=== PATIENT | male | born 1940 | race Hispanic/Latino ===

== ENCOUNTER 2016-06-22 12:41 | Inpatient (IN) | payer MEDICARE ==
--- NOTE | 2016-06-22 13:19 | Emergency Department Report ---
Chief Complaint: Neuro Symptoms/Deficit Stated Complaint: STROKE SYMPTOMS/ELEVATED SUGAR - HPI History of Present Illness: Patient here with daughter whom is very upfront about speaking for her father. Daughter states she believed her father had a stroke this morning. [facility] patient had confirmed stroke on CT by Hemalatha Overton 4 days ago after patient was found faced down in the shower. States told at [place] that patient needs reactivated plasma treatment which she would like administered to him today. Daughter reports blood sugar in the 400s this morning. Patient reports right leg weakness. He denies headache, chest pain, SOB. - Exam Vital Signs: Vital Signs 06/22/16 12:54 Temperature 98.4 F Pulse Rate 69 Respiratory 18 Rate Blood Pressure 144/94 [Right] O2 Sat by Pulse 94 Oximetry Physical Exam: General: NAD. Neuro: Asymmetric Left facial expression. No arm drift. + Symmetric upper and lower extremity strength. Extremities: Multiple abrasions to b/l knees. + right calf tenderness. No pretibia edema. MSE screening note: Focused history and physical exam performed. Due to findings the following was ordered: ED Disposition for MSE Condition: Stable
[2016-06-22 14:40] LABS: Basophils % (Auto) 1.4 % (0.0-1.8); Eosinophils % (Auto) 6.7 % (0.0-4.3); Hematocrit 54.6 % (35.5-45.6); Hemoglobin 18.5 gm/dl (11.8-15.2); Mean Corpuscular HGB Conc 34 % (32-34); Mean Corpuscular Hemoglobin 31 pg (28-32); Mean Corpuscular Volume 92 fl (84-94); Platelet Count 170 K/mm3 (140-440); Red Blood Count 5.93 M/mm3 (3.65-5.03); Red Cell Distribution Width 13.4 % (13.2-15.2); White Blood Count 6.3 K/mm3 (4.5-11.0)
[2016-06-22 14:47] LABS: INR 0.9 (0.87-1.13)
[2016-06-22 14:59] LABS: Anion Gap 20 mmol/L; B-Hydroxybutyrate 1.6 mg/dL (0.2-2.8); Blood Urea Nitrogen 12 mg/dL (9-20); Calcium 9.4 mg/dL (8.4-10.2); Carbon Dioxide 26 mmol/L (22-30); Chloride 94.5 mmol/L (98-107); Glucose 361 mg/dL (75-100); Potassium 4.6 mmol/L (3.6-5.0); Sodium 136 mmol/L (137-145)
--- NOTE | 2016-06-22 15:41 | Cat Scan Report ---
CT HEAD WITHOUT CONTRAST: HISTORY: CVA. Serial contiguous axial images were obtained through the cranium. Intravenous contrast material was not administered. The ventricles are normal in size and appearance. There is no mass effect or midline shift. No areas of abnormally increased or decreased attenuation are seen. No mass lesion is seen. The mastoid air cells and visualized portions of the sinuses are normal. IMPRESSION: Cranial CT scan within normal limits.
[2016-06-23] MEDS ORDERED: NORCO 5/325 PO ONE (00:02)
--- NOTE | 2016-06-23 00:12 | Emergency Department Report ---
HPI - General Chief Complaint: Neuro Symptoms/Deficit Time Seen by Provider: 06/22/16 23:33 - HPI HPI: Room 2 Patient is 76-year-old male presenting with chief complaint of frequent falls. The patient lives with his daughter at home and she states he has had frequent falls for the past 3-4 months. The patient's primary physician wanted to do a workup the patient wanted to wait until after the holidays. 5 days ago the daughter came home states she felt the patient lying face down in the shower but he was conscious with the shower running. The patient states he was in the shower and then "I just went down." The patient states he felt too weak to get up the daughter states she got the patient up and put him in bed the next day she felt the patient for about the toilet unconscious. The daughter states it appears as though the patient was struggling to make his way to the bathroom and was unsuccessful and incontinent. EMS was called and transported the patient to [facility] the patient received a CT scan of the brain and blood work. The daughter states the patient was discharged home. The daughter states the symptoms continued and the patient is currently unable to walk without fall. The patient complains of pain in his right knee and denies other complaints except for inability to walk Location: [see above] Duration: [see above] Quality: Pain Severity: Moderate Modifying factors: [see above] Context: [see above] Mode of transportation: [not driving] ED Past Medical Hx - Past Medical History Hx Hypertension: Yes Hx Diabetes: Yes Additional medical history: dementia, various vein - Surgical History Additional Surgical History: Right knee - Family History Family history: no significant - Social History Smoking Status: Never Smoker Substance Use Type: Alcohol (occasional) ED Review of Systems ROS: Stated complaint: STROKE SYMPTOMS/ELEVATED SUGAR Other details as noted in HPI Comment: All other systems reviewed and negative Constitutional: denies: chills, fever Eyes: denies: eye pain, eye discharge, vision change ENT: denies: ear pain, throat pain Respiratory: denies: cough, shortness of breath, wheezing Cardiovascular: denies: chest pain, palpitations Endocrine: no symptoms reported Gastrointestinal: denies: abdominal pain, nausea, diarrhea Genitourinary: denies: urgency, dysuria Musculoskeletal: arthralgia Skin: other (bruising and scabs over knees) Neurological: denies: headache, weakness, paresthesias Psychiatric: denies: anxiety, depression Hematological/Lymphatic: denies: easy bleeding, easy bruising Physical Exam - Physical Exam Vital Signs: Vital Signs 06/22/16 12:54 Temperature 98.4 F Pulse Rate 69 Respiratory 18 Rate Blood Pressure 144/94 [Right] O2 Sat by Pulse 94 Oximetry Physical Exam: GENERAL: The patient is well-developed well-nourished male lying on stretcher not appearing to be in acute distress. [] HEENT: Normocephalic. Atraumatic. Extraocular motions are intact. Patient has moist mucous membranes. NECK: Supple. Trachea midline CHEST/LUNGS: Clear to auscultation. There is no respiratory distress noted. HEART/CARDIOVASCULAR: Regular. There is no tachycardia. There is no gallop rub or murmur. ABDOMEN: Abdomen is soft, nontender. Patient has normal bowel sounds. There is no abdominal distention. SKIN: There is bruising and scabs over bilateral knees from previous falls. There is no diaphoresis. NEURO: The patient is awake, alert, and oriented. The patient is cooperative. The patient has no focal neurologic deficits. The patient has normal speech. Cranial nerves II through XII grossly intact, no drift, normal sensation throughout. Semiautomatic Stitcher Operator 5+/5 bilaterally MUSCULOSKELETAL: There is no evidence of acute injury. ED Course Vital Signs 06/22/16 12:54 Temperature 98.4 F Pulse Rate 69 Respiratory 18 Rate Blood Pressure 144/94 [Right] O2 Sat by Pulse 94 Oximetry ED Medical Decision Making - Lab Data Result diagrams: 06/22/16 14:27 06/22/16 14:27 Laboratory Tests 06/22/16 06/22/16 06/22/16 12:56 14:27 14:27 WBC 6.3 RBC 5.93 H Hgb 18.5 H Hct 54.6 H MCV 92 MCH 31 MCHC 34 RDW 13.4 Plt Count 170 Lymph % (Auto) 21.2 [place] % (Auto) 10.3 H Eos % (Auto) 6.7 H Baso % (Auto) 1.4 Lymph # 1.3 [place] # 0.6 Eos # 0.4 Baso # 0.1 Seg Neutrophils % 60.4 Seg Neutrophils # 3.8 PT 12.0 L INR 0.90 Thrombin Time VBG pH Sodium Potassium Chloride Carbon Dioxide Anion Gap BUN Creatinine Estimated GFR BUN/Creatinine Ratio Glucose POC Glucose 302 H Calcium Troponin T Ketones 06/22/16 06/22/16 06/22/16 14:27 14:27 14:27 WBC RBC Hgb Hct MCV MCH MCHC RDW Plt Count Lymph % (Auto) [place] % (Auto) Eos % (Auto) Baso % (Auto) Lymph # [place] # Eos # Baso # Seg Neutrophils % Seg Neutrophils # PT INR Thrombin Time 13.8 L VBG pH 7.332 Sodium 136 L Potassium 4.6 Chloride 94.5 L Carbon Dioxide 26 Anion Gap 20 BUN 12 Creatinine 1.1 Estimated GFR > 60 BUN/Creatinine Ratio 10.90 Glucose 361 H POC Glucose Calcium 9.4 Troponin T < 0.010 Ketones 1.6 - Radiology Data Radiology results: report reviewed (CT head), image reviewed (CT head, right knee x-ray, pelvis x-ray) interpreted by me: Right knee x-ray-no acute fracture Pelvis x-ray-no acute fracture CT head (read by radiologist)-cranial CT scan within normal limits - Differential Diagnosis CVA, syncope, pelvic fracture Critical care attestation.: If time is entered above; I have spent that time in minutes in the direct care of this critically ill patient, excluding procedure time. ED Disposition Clinical Impression: Inability to walk, Frequent falls, Impaired activities of daily living, Contusion of right knee Disposition: OP ADMITTED IP TO THIS HOSP Is pt being admited?: Yes Does the pt Need Aspirin: Yes Condition: Fair Referrals: RADHA ASKEW MD [Primary Care Provider] - 3-5 Days Time of Disposition: 00:47 (hospitalist notified)
[2016-06-23 01:33] LABS: Bilirubin,Urine NEG (Negative); Blood,Urine NEG (Negative); Ketones,Urine NEG (Negative); Leukocyte Esterase,Urine NEG (Negative); Mucus,Urine FEW /HPF; Nitrite,Urine NEG (Negative); Protein,Urine <15 mg/dL mg/dL (Negative); RBC,Urine < 1.0 /HPF (0.0-6.0); Urobilinogen,Urine < 2.0 mg/dL (<2.0)
[2016-06-23] MEDS ORDERED: XANAX PO ONE (01:36)
[2016-06-23] MEDS ORDERED: XANAX ONE (01:38)
[2016-06-23] MEDS ORDERED: NORCO 5/325 ONE (02:06)
--- NOTE | 2016-06-23 02:32 | History and Physical Report ---
History of Present Illness Date of examination: 06/23/16 History of present illness: 76-year-old man with a history of hypertension, diabetes, TIA comes emergency room because he has been falling more often. He was diagnosed with a TIA a few days ago at [facility]. Daughter state that he falls every day, patient had a right knee replacement , he stated he feels like his knees is giving out. Daughter state these noncompliant with diet, sugars are uncontrolled Patient denies chest pain, palpitation, shortness of breath, cough, abdominal pain, hematochezia, dysuria, frequency, focal weakness, dysarthria, fever chills , polydipsia polyuria, hot or cold intolerance, easy bruisability, or rash or bleeding from mucosal membrane, rhinorrhea, epistaxis, earache, tinnitus, blurry vision, eye discharge, anxiety, depression. Other review of systems negative PAST SURGICAL HISTORY: Knee replacement SOCIAL HISTORY: Denies alcohol, tobacco, drugs FAMILY HISTORY: Hypertension Medications and Allergies Allergies Allergy/AdvReac Type Severity Reaction Status Date / Time No Known Allergies Allergy Verified 06/23/16 01:47 Home Medications Medication Instructions Recorded Confirmed Last Taken Type ALPRAZolam [Xanax TAB] 2 mg PO DAILY 06/23/16 06/23/16 Unknown History Aspirin [Aspirin BABY CHEW TAB] 81 mg PO DAILY 06/23/16 06/23/16 Unknown History Cholecalciferol (Vitamin D3) 1,000 unit PO DAILY 06/23/16 06/23/16 Unknown History [Children's Vitamin D3] Insulin Glargine [Lantus VIAL] 45 units SQ QHS 06/23/16 06/23/16 Unknown History Insulin Lispro [Humalog Kwikpen 15 unit SQ TID 06/23/16 06/23/16 Unknown History U-100] Metoprolol [Lopressor TAB] 50 mg PO BID 06/23/16 06/23/16 Unknown History Omeprazole 20 mg PO DAILY 06/23/16 06/23/16 Unknown History Oxybutynin Chloride [Oxybutynin 5 mg PO DAILY 06/23/16 06/23/16 Unknown History Chloride ER] Pravastatin Sodium [Pravastatin] 40 mg PO DAILY 06/23/16 06/23/16 Unknown History Zolpidem [Ambien] 5 mg PO QHS PRN 06/23/16 06/23/16 Unknown History Active Meds: Active Medications Alprazolam (Xanax) 2 mg PO ONCE ONE Stop: 06/23/16 01:37 Last Admin: 06/23/16 01:43 Dose: 2 mg Exam - Physical Exam Narrative exam: Gen. appearance: Patient lying in bed, no apparent distress HEENT: Normocephalic, atraumatic, pupils equally round and reactive to light, extraocular movement intact, and no sclericterus,. No JVD or thyromegaly or nodule,neck supple, no carotid bruit ,mucous membranes moist, no exudate or erythema Heart: S1, S2, regular rate and rhythm Lungs: Clear to auscultation bilaterally, breathing comfortable Abdomen: Positive bowel sounds, nontender, nondistended, no organomegaly Extremity: No edema, cyanosis, clubbing Skin: No rash, nodules, warm, dry Neuro: Oriented 3, cranial nerves II-12 intact, speech is fluent, motor and sensory intact - Constitutional Vitals: Temp Pulse Resp BP Pulse Ox 97.4 F L 79 16 136/80 93 06/23/16 00:06 06/23/16 01:01 06/23/16 01:01 06/23/16 01:01 06/23/16 01:01 Results - Labs CBC & Chem 7: 06/27/16 05:35 06/27/16 05:35 Labs: Abnormal lab results 06/22/16 06/22/16 06/22/16 Range/Units 12:56 14:27 14:27 RBC 5.93 H (3.65-5.03) M/mm3 Hgb 18.5 H (11.8-15.2) gm/dl Hct 54.6 H (35.5-45.6) % [place] % (Auto) 10.3 H (0.0-7.3) % Eos % (Auto) 6.7 H (0.0-4.3) % PT 12.0 L (12.2-14.9) Sec. Thrombin Time (15.1-19.6) Sec. Sodium (137-145) mmol/L Chloride (98-107) mmol/L Glucose (75-100) mg/dL POC Glucose 302 H (70-105) 06/22/16 06/22/16 Range/Units 14:27 14:27 RBC (3.65-5.03) M/mm3 Hgb (11.8-15.2) gm/dl Hct (35.5-45.6) % [place] % (Auto) (0.0-7.3) % Eos % (Auto) (0.0-4.3) % PT (12.2-14.9) Sec. Thrombin Time 13.8 L (15.1-19.6) Sec. Sodium 136 L (137-145) mmol/L Chloride 94.5 L (98-107) mmol/L Glucose 361 H (75-100) mg/dL POC Glucose (70-105) - Imaging and Cardiology CT Scan - head: report reviewed Assessment and Plan Frequent fall, rule out knee prosthetic problem Dehydration Hypertension Diabetes History of TIA Admits medicine Start IV fluid, consult physical therapy, orthopedic Check fingersticks initiate insulin sliding scale Continue appropiate outpatient medications, start DVT prophylaxis Follow x-ray of the knee and pelvis
[2016-06-23] MEDS ORDERED: MILK OF MAGNESIA PO PRN (04:40)
[2016-06-23] MEDS ORDERED: ZOFRAN IV PRN (04:40)
[2016-06-23] MEDS ORDERED: PROVENTIL IH PRN (04:40)
[2016-06-23] MEDS ORDERED: DULCOLAX PR PRN (04:40)
[2016-06-23] MEDS ORDERED: TYLENOL PO PRN (04:40)
[2016-06-23] MEDS ORDERED: NACL 0.9% 1000 ML 1,000 ML IV SCH (06:00)
--- NOTE | 2016-06-23 07:44 | XRay Report ---
AP pelvis: Mild spurs are identified lungs appear acetabular margins bilaterally. The hip joints otherwise appear unremarkable and the AP view the pelvis is generally unremarkable as well. There are several surgical clips overlying the right lower ischium but its unclear as to their exact location. Impression: No acute finding. Right knee: Minimal articular spurs are identified at the medial joint compartment. The articular margins of both compartments are smooth and aligned. The joint spaces are preserved. The bones are well-mineralized. No swelling and no effusion present. Impression: Minimal degenerative changes of the medial joint compartment.
[2016-06-23] MEDS: LOVENOX SUB-Q SCH (09:47)
[2016-06-23] MEDS ORDERED: LOVENOX SUB-Q SCH (10:00)
[2016-06-23] MEDS ORDERED: AMBIEN PO PRN (11:14)
[2016-06-23] MEDS ORDERED: INSULIN LISPRO 15 UNIT SQ SCH (14:00)
[2016-06-23] MEDS: XANAX PO PRN ×2 (14:24→21:56)
[2016-06-23] MEDS: DITROPAN XL PO SCH (14:24)
[2016-06-23] MEDS: NOVOLOG SUB-Q SCH (17:53)
[2016-06-23] MEDS: LOPRESSOR PO SCH ×2 (21:55→23:00)
[2016-06-23] MEDS: ZOCOR PO SCH ×2 (21:56→22:00)
[2016-06-23] MEDS ORDERED: INSULIN GLARGINE 45 UNIT SQ SCH (22:00)
[2016-06-23] MEDS ORDERED: LEVEMIR SUB-Q SCH (22:00)
[2016-06-23] MEDS ORDERED: HALDOL IM ONE (22:29)
--- NOTE | 2016-06-24 04:53 | Event Note ---
Date: 06/23/16 Pt seen and evaluated. NO significant new physical exam findings. Discussed care plan with patient. Pending ortho evaluation.
[2016-06-24 05:43] LABS: Basophils % (Auto) 0.7 % (0.0-1.8); Eosinophils % (Auto) 1.8 % (0.0-4.3); Hematocrit 53.4 % (35.5-45.6); Hemoglobin 18.6 gm/dl (11.8-15.2); Mean Corpuscular HGB Conc 35 % (32-34); Mean Corpuscular Hemoglobin 32 pg (28-32); Mean Corpuscular Volume 91 fl (84-94); Platelet Count 156 K/mm3 (140-440); Red Blood Count 5.88 M/mm3 (3.65-5.03); Red Cell Distribution Width 13.3 % (13.2-15.2); White Blood Count 8.1 K/mm3 (4.5-11.0)
[2016-06-24 05:59] LABS: BUN/Creatinine Ratio 7.77; Blood Urea Nitrogen 7 mg/dL (9-20); Calcium 9.5 mg/dL (8.4-10.2); Carbon Dioxide 26 mmol/L (22-30); Chloride 101.7 mmol/L (98-107); Glucose 218 mg/dL (75-100); Potassium 3.8 mmol/L (3.6-5.0); Sodium 142 mmol/L (137-145)
[2016-06-24 06:01] LABS: Anion Gap 18 mmol/L
[2016-06-24] MEDS: NOVOLOG SUB-Q SCH ×3 (09:55→17:29)
[2016-06-24] MEDS: BABY ASPIRIN PO SCH (09:57)
[2016-06-24] MEDS: DITROPAN XL PO SCH (09:57)
[2016-06-24] MEDS: LOPRESSOR PO SCH ×2 (09:57→22:12)
[2016-06-24] MEDS: PROTONIX PO SCH (09:58)
[2016-06-24] MEDS: LOVENOX SUB-Q SCH (09:58)
[2016-06-24] MEDS ORDERED: NON-FORMULARY (Alprazolam [Xanax Tab] 2 MG) PO SCH (10:00)
[2016-06-24] MEDS ORDERED: NON-FORMULARY (Omeprazole [Omeprazole] 20 MG) PO SCH (10:00)
[2016-06-24] MEDS ORDERED: NON-FORMULARY (Pravastatin Sodium [Pravastatin] 40 MG) PO SCH (10:00)
--- NOTE | 2016-06-24 11:12 | Progress Note ---
Assessment and Plan Assessment and plan: 1. Frequent falls. Etiology may be secondary to malfunctioning prosthetic knee. Orthopedic evaluation pending. PT/OT evaluation. Case management consultation for SNF placement. CT scan of the head was negative. Pelvic and knee x-rays are negative. 2. History of TIA. Continue current medications. 3. Diabetes mellitus type 2, uncontrolled. Continue detemir and sliding scale insulin. 1800 ADA diet. 4. Hypertension. Continue antihypertensive medications. History Interval history: No new issues overnight. Hospitalist Physical - Constitutional Vitals: Temp Pulse Resp BP Pulse Ox 97.9 F 72 20 154/90 94 06/24/16 08:00 06/24/16 08:00 06/24/16 08:00 06/24/16 08:00 06/24/16 09:17 General appearance: Present: no acute distress, well-nourished - EENT Eyes: Present: PERRL, EOM intact ENT: hearing intact, clear oral mucosa, dentition normal - Neck Neck: Present: supple, normal ROM - Respiratory Respiratory effort: normal Respiratory: bilateral: CTA - Cardiovascular Rhythm: regular Heart Sounds: Present: S1 & S2. Absent: gallop, rub - Extremities Extremities: no ischemia, No edema, Full ROM - Abdominal General gastrointestinal: soft, non-tender, non-distended, normal bowel sounds - Integumentary Integumentary: Present: clear, warm, dry - Neurologic Neurologic: CNII-XII intact, moves all extremities Results - Labs CBC & Chem 7: 06/24/16 05:12 06/24/16 05:12 Labs: Laboratory Last Values WBC 8.1 K/mm3 (4.5-11.0) 06/24/16 05:12 RBC 5.88 M/mm3 (3.65-5.03) H 06/24/16 05:12 Hgb 18.6 gm/dl (11.8-15.2) H 06/24/16 05:12 Hct 53.4 % (35.5-45.6) H 06/24/16 05:12 MCV 91 fl (84-94) 06/24/16 05:12 MCH 32 pg (28-32) 06/24/16 05:12 MCHC 35 % (32-34) H 06/24/16 05:12 RDW 13.3 % (13.2-15.2) 06/24/16 05:12 Plt Count 156 K/mm3 (140-440) 06/24/16 05:12 Lymph % (Auto) 9.9 % (13.4-35.0) L 06/24/16 05:12 [place] % (Auto) 7.8 % (0.0-7.3) H 06/24/16 05:12 Eos % (Auto) 1.8 % (0.0-4.3) 06/24/16 05:12 Baso % (Auto) 0.7 % (0.0-1.8) 06/24/16 05:12 Lymph # 0.8 K/mm3 (1.2-5.4) L 06/24/16 05:12 [place] # 0.6 K/mm3 (0.0-0.8) 06/24/16 05:12 Eos # 0.1 K/mm3 (0.0-0.4) 06/24/16 05:12 Baso # 0.1 K/mm3 (0.0-0.1) 06/24/16 05:12 Seg Neutrophils % 79.8 % (40.0-70.0) H 06/24/16 05:12 Seg Neutrophils # 6.4 K/mm3 (1.8-7.7) 06/24/16 05:12 PT 12.0 Sec. (12.2-14.9) L 06/22/16 14:27 INR 0.90 (0.87-1.13) 06/22/16 14:27 Thrombin Time 13.8 Sec. (15.1-19.6) L 06/22/16 14:27 VBG pH 7.332 (7.320-7.420) 06/22/16 14:27 Sodium 142 mmol/L (137-145) 06/24/16 05:12 Potassium 3.8 mmol/L (3.6-5.0) 06/24/16 05:12 Chloride 101.7 mmol/L (98-107) 06/24/16 05:12 Carbon Dioxide 26 mmol/L (22-30) 06/24/16 05:12 Anion Gap 18 mmol/L 06/24/16 05:12 BUN 7 mg/dL (9-20) L 06/24/16 05:12 Creatinine 0.9 mg/dL (0.8-1.5) 06/24/16 05:12 Estimated GFR > 60 ml/min 06/24/16 05:12 BUN/Creatinine Ratio 7.77 % 06/24/16 05:12 Glucose 218 mg/dL (75-100) H 06/24/16 05:12 POC Glucose 187 (70-105) H 06/24/16 06:19 Calcium 9.5 mg/dL (8.4-10.2) 06/24/16 05:12 Troponin T < 0.010 ng/mL (0.00-0.029) 06/22/16 14:27 Urine Color Yellow (Yellow) 06/23/16 01:08 Urine Turbidity Clear (Clear) 06/23/16 01:08 Urine pH 5.0 (5.0-7.0) 06/23/16 01:08 Ur Specific [place] 1.024 (1.003-1.030) 06/23/16 01:08 Urine Protein <15 mg/dl mg/dL (Negative) 06/23/16 01:08 Urine Glucose (UA) >=500 mg/dL (Negative) 06/23/16 01:08 Urine Ketones Neg mg/dL (Negative) 06/23/16 01:08 Urine Blood Neg (Negative) 06/23/16 01:08 Urine Nitrite Neg (Negative) 06/23/16 01:08 Urine Bilirubin Neg (Negative) 06/23/16 01:08 Urine Urobilinogen < 2.0 mg/dL (<2.0) 06/23/16 01:08 Ur Leukocyte Esterase Neg (Negative) 06/23/16 01:08 Urine WBC (Auto) 0.0 /HPF (0.0-6.0) 06/23/16 01:08 Urine RBC (Auto) < 1.0 /HPF (0.0-6.0) 06/23/16 01:08 Urine Mucus Few /HPF 06/23/16 01:08 Ketones 1.6 mg/dL (0.2-2.8) 06/22/16 14:27
[2016-06-24] MEDS ORDERED: PNEUMOVAX 23 IM ONE (12:00)
[2016-06-24] MEDS ORDERED: FLUARIX QUAD 2016-2017(36 MOS+) IM ONE (12:00)
--- NOTE | 2016-06-24 12:23 | Consultation ---
History of Present Illness - HPI Consult date: 06/24/16 Consult reason: joint pain Medications and Allergies Allergies Allergy/AdvReac Type Severity Reaction Status Date / Time No Known Allergies Allergy Verified 06/23/16 01:47 Home Medications Medication Instructions Recorded Confirmed Last Taken Type ALPRAZolam [Xanax TAB] 2 mg PO DAILY 06/23/16 06/23/16 Unknown History Aspirin [Aspirin BABY CHEW TAB] 81 mg PO DAILY 06/23/16 06/23/16 Unknown History Cholecalciferol (Vitamin D3) 1,000 unit PO DAILY 06/23/16 06/23/16 Unknown History [Children's Vitamin D3] Insulin Glargine [Lantus VIAL] 45 units SQ QHS 06/23/16 06/23/16 Unknown History Insulin Lispro [Humalog Kwikpen 15 unit SQ TID 06/23/16 06/23/16 Unknown History U-100] Metoprolol [Lopressor TAB] 50 mg PO BID 06/23/16 06/23/16 Unknown History Omeprazole 20 mg PO DAILY 06/23/16 06/23/16 Unknown History Oxybutynin Chloride [Oxybutynin 5 mg PO DAILY 06/23/16 06/23/16 Unknown History Chloride ER] Pravastatin Sodium [Pravastatin] 40 mg PO DAILY 06/23/16 06/23/16 Unknown History Zolpidem [Ambien] 5 mg PO QHS PRN 06/23/16 06/23/16 Unknown History Active Meds: Active Medications Acetaminophen (Tylenol) 650 mg PO Q4H PRN PRN Reason: Pain MILD(1-3)/Fever >100.5/DAVILA Last Admin: 06/23/16 14:25 Dose: 650 mg Albuterol (Proventil) 2.5 mg IH Q3HRT PRN PRN Reason: Shortness Of Breath Alprazolam (Xanax) 2 mg PO Q6H PRN PRN Reason: Anxiety Last Admin: 06/23/16 14:24 Dose: 2 mg Aspirin (Baby Aspirin) 81 mg PO DAILY [facility] Last Admin: 06/24/16 09:57 Dose: 81 mg Bisacodyl (Dulcolax) 10 mg SD QDAY PRN PRN Reason: Constipation unrelieved by MOM Enoxaparin Sodium (Lovenox) 40 mg SUB-Q QDAY@1000 [facility] Last Admin: 06/24/16 09:58 Dose: 40 mg Insulin Aspart (Novolog) 15 units SUB-Q AC [facility] Last Admin: 06/24/16 09:55 Dose: 15 units Insulin Detemir (Levemir) 45 units SUB-Q QHS [facility] Last Admin: 06/23/16 23:00 Dose: Not Given Magnesium Hydroxide (Milk Of Magnesia) 30 ml PO Q4H PRN PRN Reason: Constipation Metoprolol Tartrate (Lopressor) 50 mg PO BID [facility] Last Admin: 06/24/16 09:57 Dose: 50 mg Ondansetron HCl (Zofran) 4 mg IV Q8H PRN PRN Reason: N/V unrelieved by Reglan Oxybutynin Chloride (Ditropan Xl) 5 mg PO DAILY [facility] Last Admin: 06/24/16 09:57 Dose: 5 mg Pantoprazole Sodium (Protonix) 20 mg PO QDAY [facility] Last Admin: 06/24/16 09:58 Dose: 20 mg Simvastatin (Zocor) 20 mg PO QHS [facility] Last Admin: 06/23/16 22:00 Dose: Not Given Zolpidem Tartrate (Ambien) 5 mg PO QHS PRN PRN Reason: Sleep Assessment and Plan alert orientated in NAD Moderate swelling pain on right knee pain improved in last few days Exam full motion, mild effusion, stable knee Rx moderate arthritis. Rec Ansaids. Office follow up.
[2016-06-24] MEDS ORDERED: LEVEMIR SUB-Q SCH (22:00)
[2016-06-24] MEDS: ZOCOR PO SCH (22:13)
[2016-06-24] MEDS: XANAX PO PRN (22:15)
[2016-06-25] MEDS: NOVOLOG SUB-Q SCH ×3 (08:00→17:58)
--- NOTE | 2016-06-25 09:56 | Progress Note ---
Assessment and Plan Assessment and plan: 1. Frequent falls. Etiology may be secondary to malfunctioning prosthetic knee. Orthopedic follow. PT/OT evaluation. Case management consultation for SNF placement. CT scan of the head was negative. Pelvic and knee x-rays are negative. 2. History of TIA. Continue current medications. 3. Diabetes mellitus type 2, uncontrolled. Continue detemir and sliding scale insulin. 1800 ADA diet. 4. Hypertension. Continue antihypertensive medications. 5. Disposition. Await rehabilitation placement. History Interval history: No new issues overnight. Hospitalist Physical - Constitutional Vitals: Temp Pulse Resp BP Pulse Ox 97.7 F 69 15 127/71 98 06/25/16 07:45 06/25/16 07:45 06/25/16 07:45 06/25/16 07:45 06/25/16 07:45 General appearance: Present: no acute distress, well-nourished - EENT Eyes: Present: PERRL, EOM intact ENT: hearing intact, clear oral mucosa, dentition normal - Neck Neck: Present: supple, normal ROM - Respiratory Respiratory effort: normal Respiratory: bilateral: CTA - Cardiovascular Rhythm: regular Heart Sounds: Present: S1 & S2. Absent: gallop, rub - Extremities Extremities: no ischemia, No edema, Full ROM - Abdominal General gastrointestinal: soft, non-tender, non-distended, normal bowel sounds - Integumentary Integumentary: Present: clear, warm, dry - Neurologic Neurologic: CNII-XII intact, moves all extremities Results - Labs CBC & Chem 7: 06/24/16 05:12 06/24/16 05:12 Labs: Laboratory Last Values WBC 8.1 K/mm3 (4.5-11.0) 06/24/16 05:12 RBC 5.88 M/mm3 (3.65-5.03) H 06/24/16 05:12 Hgb 18.6 gm/dl (11.8-15.2) H 06/24/16 05:12 Hct 53.4 % (35.5-45.6) H 06/24/16 05:12 MCV 91 fl (84-94) 06/24/16 05:12 MCH 32 pg (28-32) 06/24/16 05:12 MCHC 35 % (32-34) H 06/24/16 05:12 RDW 13.3 % (13.2-15.2) 06/24/16 05:12 Plt Count 156 K/mm3 (140-440) 06/24/16 05:12 Lymph % (Auto) 9.9 % (13.4-35.0) L 06/24/16 05:12 [place] % (Auto) 7.8 % (0.0-7.3) H 06/24/16 05:12 Eos % (Auto) 1.8 % (0.0-4.3) 06/24/16 05:12 Baso % (Auto) 0.7 % (0.0-1.8) 06/24/16 05:12 Lymph # 0.8 K/mm3 (1.2-5.4) L 06/24/16 05:12 [place] # 0.6 K/mm3 (0.0-0.8) 06/24/16 05:12 Eos # 0.1 K/mm3 (0.0-0.4) 06/24/16 05:12 Baso # 0.1 K/mm3 (0.0-0.1) 06/24/16 05:12 Seg Neutrophils % 79.8 % (40.0-70.0) H 06/24/16 05:12 Seg Neutrophils # 6.4 K/mm3 (1.8-7.7) 06/24/16 05:12 PT 12.0 Sec. (12.2-14.9) L 06/22/16 14:27 INR 0.90 (0.87-1.13) 06/22/16 14:27 Thrombin Time 13.8 Sec. (15.1-19.6) L 06/22/16 14:27 VBG pH 7.332 (7.320-7.420) 06/22/16 14:27 Sodium 142 mmol/L (137-145) 06/24/16 05:12 Potassium 3.8 mmol/L (3.6-5.0) 06/24/16 05:12 Chloride 101.7 mmol/L (98-107) 06/24/16 05:12 Carbon Dioxide 26 mmol/L (22-30) 06/24/16 05:12 Anion Gap 18 mmol/L 06/24/16 05:12 BUN 7 mg/dL (9-20) L 06/24/16 05:12 Creatinine 0.9 mg/dL (0.8-1.5) 06/24/16 05:12 Estimated GFR > 60 ml/min 06/24/16 05:12 BUN/Creatinine Ratio 7.77 % 06/24/16 05:12 Glucose 218 mg/dL (75-100) H 06/24/16 05:12 POC Glucose 112 (70-105) H 06/25/16 06:27 Calcium 9.5 mg/dL (8.4-10.2) 06/24/16 05:12 Troponin T < 0.010 ng/mL (0.00-0.029) 06/22/16 14:27 Urine Color Yellow (Yellow) 06/23/16 01:08 Urine Turbidity Clear (Clear) 06/23/16 01:08 Urine pH 5.0 (5.0-7.0) 06/23/16 01:08 Ur Specific [place] 1.024 (1.003-1.030) 06/23/16 01:08 Urine Protein <15 mg/dl mg/dL (Negative) 06/23/16 01:08 Urine Glucose (UA) >=500 mg/dL (Negative) 06/23/16 01:08 Urine Ketones Neg mg/dL (Negative) 06/23/16 01:08 Urine Blood Neg (Negative) 06/23/16 01:08 Urine Nitrite Neg (Negative) 06/23/16 01:08 Urine Bilirubin Neg (Negative) 06/23/16 01:08 Urine Urobilinogen < 2.0 mg/dL (<2.0) 06/23/16 01:08 Ur Leukocyte Esterase Neg (Negative) 06/23/16 01:08 Urine WBC (Auto) 0.0 /HPF (0.0-6.0) 06/23/16 01:08 Urine RBC (Auto) < 1.0 /HPF (0.0-6.0) 06/23/16 01:08 Urine Mucus Few /HPF 06/23/16 01:08 Ketones 1.6 mg/dL (0.2-2.8) 06/22/16 14:27
[2016-06-25] MEDS: DITROPAN XL PO SCH (11:00)
[2016-06-25] MEDS: PROTONIX PO SCH (11:05)
[2016-06-25] MEDS: BABY ASPIRIN PO SCH (11:05)
[2016-06-25] MEDS: LOVENOX SUB-Q SCH (11:05)
[2016-06-25] MEDS: LOPRESSOR PO SCH (11:05)
[2016-06-25] MEDS ORDERED: ATIVAN IV PRN (21:48)
[2016-06-26] MEDS: LEVEMIR SUB-Q SCH ×2 (00:32→21:49)
[2016-06-26] MEDS: ZOCOR PO SCH ×2 (00:33→21:17)
[2016-06-26] MEDS: LOPRESSOR PO SCH ×3 (00:35→21:17)
[2016-06-26] MEDS: XANAX PO PRN ×2 (03:26→21:17)
[2016-06-26] MEDS: NOVOLOG SUB-Q SCH ×3 (08:25→17:47)
--- NOTE | 2016-06-26 10:30 | Progress Note ---
Assessment and Plan Assessment and plan: 1. Acute encephalopathy. Etiology likely secondary to hospital-acquired delerium. Continue restraints for safety. 2. Frequent falls. Etiology may be secondary to malfunctioning prosthetic knee. Orthopedic follow. PT/OT evaluation. Case management consultation for SNF placement. CT scan of the head was negative. Pelvic and knee x-rays are negative. 3. History of TIA. Continue current medications. 4. Diabetes mellitus type 2, uncontrolled. Continue detemir and sliding scale insulin. 1800 ADA diet. 5. Hypertension. Continue antihypertensive medications. 6. Disposition. Await rehabilitation placement. History Interval history: Patient apparently agitated during the night and confused. Patient appears confused presently requiring restraints. Hospitalist Physical - Constitutional Vitals: Temp Pulse Resp BP Pulse Ox 97.5 F L 90 24 142/77 95 06/25/16 22:00 06/26/16 00:35 06/25/16 22:00 06/26/16 00:35 06/25/16 22:00 General appearance: Present: no acute distress, well-nourished - EENT Eyes: Present: PERRL, EOM intact ENT: hearing intact, clear oral mucosa, dentition normal - Neck Neck: Present: supple, normal ROM - Respiratory Respiratory effort: normal Respiratory: bilateral: CTA - Cardiovascular Rhythm: regular Heart Sounds: Present: S1 & S2. Absent: gallop, rub - Extremities Extremities: no ischemia, No edema, Full ROM - Abdominal General gastrointestinal: soft, non-tender, non-distended, normal bowel sounds - Integumentary Integumentary: Present: clear, warm, dry - Neurologic Neurologic: CNII-XII intact, moves all extremities Results - Labs CBC & Chem 7: 06/24/16 05:12 06/24/16 05:12 Labs: Laboratory Last Values WBC 8.1 K/mm3 (4.5-11.0) 06/24/16 05:12 RBC 5.88 M/mm3 (3.65-5.03) H 06/24/16 05:12 Hgb 18.6 gm/dl (11.8-15.2) H 06/24/16 05:12 Hct 53.4 % (35.5-45.6) H 06/24/16 05:12 MCV 91 fl (84-94) 06/24/16 05:12 MCH 32 pg (28-32) 06/24/16 05:12 MCHC 35 % (32-34) H 06/24/16 05:12 RDW 13.3 % (13.2-15.2) 06/24/16 05:12 Plt Count 156 K/mm3 (140-440) 06/24/16 05:12 Lymph % (Auto) 9.9 % (13.4-35.0) L 06/24/16 05:12 [place] % (Auto) 7.8 % (0.0-7.3) H 06/24/16 05:12 Eos % (Auto) 1.8 % (0.0-4.3) 06/24/16 05:12 Baso % (Auto) 0.7 % (0.0-1.8) 06/24/16 05:12 Lymph # 0.8 K/mm3 (1.2-5.4) L 06/24/16 05:12 [place] # 0.6 K/mm3 (0.0-0.8) 06/24/16 05:12 Eos # 0.1 K/mm3 (0.0-0.4) 06/24/16 05:12 Baso # 0.1 K/mm3 (0.0-0.1) 06/24/16 05:12 Seg Neutrophils % 79.8 % (40.0-70.0) H 06/24/16 05:12 Seg Neutrophils # 6.4 K/mm3 (1.8-7.7) 06/24/16 05:12 PT 12.0 Sec. (12.2-14.9) L 06/22/16 14:27 INR 0.90 (0.87-1.13) 06/22/16 14:27 Thrombin Time 13.8 Sec. (15.1-19.6) L 06/22/16 14:27 VBG pH 7.332 (7.320-7.420) 06/22/16 14:27 Sodium 142 mmol/L (137-145) 06/24/16 05:12 Potassium 3.8 mmol/L (3.6-5.0) 06/24/16 05:12 Chloride 101.7 mmol/L (98-107) 06/24/16 05:12 Carbon Dioxide 26 mmol/L (22-30) 06/24/16 05:12 Anion Gap 18 mmol/L 06/24/16 05:12 BUN 7 mg/dL (9-20) L 06/24/16 05:12 Creatinine 0.9 mg/dL (0.8-1.5) 06/24/16 05:12 Estimated GFR > 60 ml/min 06/24/16 05:12 BUN/Creatinine Ratio 7.77 % 06/24/16 05:12 Glucose 218 mg/dL (75-100) H 06/24/16 05:12 POC Glucose 149 (70-105) H 06/26/16 06:04 Calcium 9.5 mg/dL (8.4-10.2) 06/24/16 05:12 Troponin T < 0.010 ng/mL (0.00-0.029) 06/22/16 14:27 Urine Color Yellow (Yellow) 06/23/16 01:08 Urine Turbidity Clear (Clear) 06/23/16 01:08 Urine pH 5.0 (5.0-7.0) 06/23/16 01:08 Ur Specific [place] 1.024 (1.003-1.030) 06/23/16 01:08 Urine Protein <15 mg/dl mg/dL (Negative) 06/23/16 01:08 Urine Glucose (UA) >=500 mg/dL (Negative) 06/23/16 01:08 Urine Ketones Neg mg/dL (Negative) 06/23/16 01:08 Urine Blood Neg (Negative) 06/23/16 01:08 Urine Nitrite Neg (Negative) 06/23/16 01:08 Urine Bilirubin Neg (Negative) 06/23/16 01:08 Urine Urobilinogen < 2.0 mg/dL (<2.0) 06/23/16 01:08 Ur Leukocyte Esterase Neg (Negative) 06/23/16 01:08 Urine WBC (Auto) 0.0 /HPF (0.0-6.0) 06/23/16 01:08 Urine RBC (Auto) < 1.0 /HPF (0.0-6.0) 06/23/16 01:08 Urine Mucus Few /HPF 06/23/16 01:08 Ketones 1.6 mg/dL (0.2-2.8) 06/22/16 14:27
[2016-06-26] MEDS: BABY ASPIRIN PO SCH (10:55)
[2016-06-26] MEDS: LOVENOX SUB-Q SCH (10:55)
[2016-06-26] MEDS: DITROPAN XL PO SCH (10:55)
[2016-06-26] MEDS: PROTONIX PO SCH (10:55)
[2016-06-27 06:44] LABS: Basophils % (Auto) 1.2 % (0.0-1.8); Eosinophils % (Auto) 2.5 % (0.0-4.3); Mean Corpuscular HGB Conc 35 % (32-34); Mean Corpuscular Hemoglobin 32 pg (28-32); Mean Corpuscular Volume 92 fl (84-94); Platelet Count 179 K/mm3 (140-440); Red Blood Count 6.06 M/mm3 (3.65-5.03); Red Cell Distribution Width 13.7 % (13.2-15.2); White Blood Count 6.3 K/mm3 (4.5-11.0)
[2016-06-27 06:55] LABS: Hematocrit 55.7 % (35.5-45.6); Hemoglobin 19.6 gm/dl (11.8-15.2)
[2016-06-27 07:03] LABS: Anion Gap 20 mmol/L; Blood Urea Nitrogen 9 mg/dL (9-20); Calcium 9.4 mg/dL (8.4-10.2); Carbon Dioxide 25 mmol/L (22-30); Chloride 97.6 mmol/L (98-107); Glucose 178 mg/dL (75-100); Potassium 4.1 mmol/L (3.6-5.0); Sodium 138 mmol/L (137-145)
[2016-06-27] MEDS: NOVOLOG SUB-Q SCH ×3 (08:31→17:34)
[2016-06-27] MEDS: LOVENOX SUB-Q SCH (09:52)
[2016-06-27] MEDS: PROTONIX PO SCH (09:53)
[2016-06-27] MEDS: DITROPAN XL PO SCH (09:53)
[2016-06-27] MEDS: BABY ASPIRIN PO SCH (09:53)
[2016-06-27] MEDS: LOPRESSOR PO SCH ×2 (09:54→23:07)
--- NOTE | 2016-06-27 16:21 | Progress Note ---
Assessment and Plan Assessment and plan: 76-year-old man with a history of hypertension, diabetes, TIA comes emergency room because he has been falling more often. He was diagnosed with a TIA a few days ago at [facility]. Daughter state that he falls every day, patient had a right knee replacement , he stated he feels like his knees is giving out. Daughter state these noncompliant with diet, sugars are uncontrolled Patient denies chest pain, palpitation, shortness of breath, cough, abdominal pain, hematochezia, dysuria, frequency, focal weakness, dysarthria, fever chills , polydipsia polyuria, hot or cold intolerance, easy bruisability, or rash or bleeding from mucosal membrane, rhinorrhea, epistaxis, earache, tinnitus, blurry vision, eye discharge, anxiety, depression. Other review of systems negative 1. Acute encephalopathy. Improving, Etiology likely secondary to hospital- acquired delerium. Continue restraints for safety. 2. Frequent falls. Etiology may be secondary to malfunctioning prosthetic knee. Orthopedic follow. PT/OT evaluation. Case management consultation for SNF placement. CT scan of the head was negative. Pelvic and knee x-rays are negative. 3. History of TIA. Continue current medications. 4. Diabetes mellitus type 2, uncontrolled. Continue detemir and sliding scale insulin. 1800 ADA diet. 5. Hypertension. Continue antihypertensive medications. 6. Disposition. Await rehabilitation placement discussed with case management appears patient has been accepted at [facility] awaiting insurance approval. History Interval history: Patient seen and examined this morning in no acute distress Denies any chest pain, nausea, vomiting, diarrhea, except knee pain and complaining of knee giving out. No fever noted blood pressure controlled Remains on restraints for safety and unsteady on his feet and gives trying to get up during periods of confusion Hospitalist Physical - Physical exam Narrative exam: VITAL SIGNS: Reviewed. GENERAL: The patient appeared well nourished and normally developed. Vital signs as documented. HEAD: No signs of head trauma. EYES: Pupils are equal. Extraocular motions intact. EARS: Hearing grossly intact. MOUTH: Oropharynx is normal. NECK: No adenopathy, no JVD. CHEST: Chest with clear breath sounds bilaterally. No wheezes, rales, or rhonchi. CARDIAC: Regular rate and rhythm. S1 and S2, without murmurs, gallops, or rubs. VASCULAR: No Edema. Peripheral pulses normal and equal in all extremities. ABDOMEN: Soft, without detectable tenderness. No sign of distention. No rebound or guarding, and no masses palpated. Bowel Sounds normal. MUSCULOSKELETAL: Good range of motion of all major joints. Extremities without clubbing, cyanosis or edema. NEUROLOGIC EXAM: Lethargic and oriented x 3. No focal sensory or strength deficits. Speech normal. Follows commands. Gait not assessed PSYCHIATRIC: Mood normal, but appears slow response. SKIN: Mild excoriation on the left medial aspect of the knee - Constitutional Vitals: Temp Pulse Resp BP Pulse Ox 97.9 F 80 16 142/64 96 06/27/16 08:00 06/27/16 09:54 06/27/16 08:00 06/27/16 09:54 06/27/16 08:00 General appearance: Present: no acute distress, well-nourished Results - Labs CBC & Chem 7: 06/27/16 05:35 06/27/16 05:35 Labs: Laboratory Last Values WBC 6.3 K/mm3 (4.5-11.0) 06/27/16 05:35 RBC 6.06 M/mm3 (3.65-5.03) H 06/27/16 05:35 Hgb 19.6 gm/dl (11.8-15.2) H 06/27/16 05:35 Hct 55.7 % (35.5-45.6) H 06/27/16 05:35 MCV 92 fl (84-94) 06/27/16 05:35 MCH 32 pg (28-32) 06/27/16 05:35 MCHC 35 % (32-34) H 06/27/16 05:35 RDW 13.7 % (13.2-15.2) 06/27/16 05:35 Plt Count 179 K/mm3 (140-440) 06/27/16 05:35 Lymph % (Auto) 15.0 % (13.4-35.0) 06/27/16 05:35 [place] % (Auto) 13.2 % (0.0-7.3) H 06/27/16 05:35 Eos % (Auto) 2.5 % (0.0-4.3) 06/27/16 05:35 Baso % (Auto) 1.2 % (0.0-1.8) 06/27/16 05:35 Lymph # 0.9 K/mm3 (1.2-5.4) L 06/27/16 05:35 [place] # 0.8 K/mm3 (0.0-0.8) 06/27/16 05:35 Eos # 0.2 K/mm3 (0.0-0.4) 06/27/16 05:35 Baso # 0.1 K/mm3 (0.0-0.1) 06/27/16 05:35 Seg Neutrophils % 68.1 % (40.0-70.0) 06/27/16 05:35 Seg Neutrophils # 4.3 K/mm3 (1.8-7.7) 06/27/16 05:35 PT 12.0 Sec. (12.2-14.9) L 06/22/16 14:27 INR 0.90 (0.87-1.13) 06/22/16 14:27 Thrombin Time 13.8 Sec. (15.1-19.6) L 06/22/16 14:27 VBG pH 7.332 (7.320-7.420) 06/22/16 14:27 Sodium 138 mmol/L (137-145) 06/27/16 05:35 Potassium 4.1 mmol/L (3.6-5.0) 06/27/16 05:35 Chloride 97.6 mmol/L (98-107) L 06/27/16 05:35 Carbon Dioxide 25 mmol/L (22-30) 06/27/16 05:35 Anion Gap 20 mmol/L 06/27/16 05:35 BUN 9 mg/dL (9-20) 06/27/16 05:35 Creatinine 1.0 mg/dL (0.8-1.5) 06/27/16 05:35 Estimated GFR > 60 ml/min 06/27/16 05:35 BUN/Creatinine Ratio 9.00 % 06/27/16 05:35 Glucose 178 mg/dL (75-100) H 06/27/16 05:35 POC Glucose 102 (70-105) 06/27/16 12:55 Calcium 9.4 mg/dL (8.4-10.2) 06/27/16 05:35 Ammonia 42.0 umol/L (25-60) 06/26/16 12:32 Troponin T < 0.010 ng/mL (0.00-0.029) 06/22/16 14:27 TSH 1.360 mlU/mL (0.270-4.200) 06/26/16 12:32 Urine Color Yellow (Yellow) 06/23/16 01:08 Urine Turbidity Clear (Clear) 06/23/16 01:08 Urine pH 5.0 (5.0-7.0) 06/23/16 01:08 Ur Specific [place] 1.024 (1.003-1.030) 06/23/16 01:08 Urine Protein <15 mg/dl mg/dL (Negative) 06/23/16 01:08 Urine Glucose (UA) >=500 mg/dL (Negative) 06/23/16 01:08 Urine Ketones Neg mg/dL (Negative) 06/23/16 01:08 Urine Blood Neg (Negative) 06/23/16 01:08 Urine Nitrite Neg (Negative) 06/23/16 01:08 Urine Bilirubin Neg (Negative) 06/23/16 01:08 Urine Urobilinogen < 2.0 mg/dL (<2.0) 06/23/16 01:08 Ur Leukocyte Esterase Neg (Negative) 06/23/16 01:08 Urine WBC (Auto) 0.0 /HPF (0.0-6.0) 06/23/16 01:08 Urine RBC (Auto) < 1.0 /HPF (0.0-6.0) 06/23/16 01:08 Urine Mucus Few /HPF 06/23/16 01:08 Ketones 1.6 mg/dL (0.2-2.8) 06/22/16 14:27
[2016-06-27] MEDS: ZOCOR PO SCH (23:07)
[2016-06-27] MEDS: LEVEMIR SUB-Q SCH (23:08)
[2016-06-28] MEDS: XANAX PO PRN (00:35)
[2016-06-28] MEDS: NOVOLOG SUB-Q SCH ×4 (09:18→18:04)
[2016-06-28] MEDS: BABY ASPIRIN PO SCH (10:14)
[2016-06-28] MEDS: PROTONIX PO SCH (10:14)
[2016-06-28] MEDS: LOPRESSOR PO SCH ×2 (10:14→22:58)
[2016-06-28] MEDS: LOVENOX SUB-Q SCH (10:14)
[2016-06-28] MEDS: DITROPAN XL PO SCH (10:14)
--- NOTE | 2016-06-28 10:14 | Discharge Summary ---
Providers - Providers Date of Admission: 06/23/16 02:21 Attending physician: AUDELIA TERESA 06/23/16 04:40 Consult to Physician [CONS] Routine Consulting Provider: CIRO MAYERS V Reason For Exam: knee pain, h/o knee surgery Place consult to:: DR. MAYERS Notified:: OFFICE Phone number called:: [phone] Was contact made?: Yes If yes, spoke with:: SYDNEE Time called:: 09:39 Comment:: HERNESTO NOTIFIED 06/24/16 08:20 Physical Therapy Evaluation and Treat [CONS] Routine Comment: Reason For Exam: frequent falls 06/25/16 15:36 Physical Therapy Evaluation and Treat [CONS] Routine Comment: Reason For Exam: falls. Unsteady gait Primary care physician: RADHA ASKEW Hospitalization Condition: Fair Disposition: STILL A PATIENT Exam - Constitutional Vitals: Temp Pulse Resp BP Pulse Ox 98 F 82 16 142/78 95 06/28/16 07:30 06/28/16 07:30 06/28/16 07:30 06/28/16 07:30 06/28/16 07:30 Plan Follow up with: RADHA ASKEW MD [Primary Care Provider] - 3-5 Days
[2016-06-28] MEDS: ZOCOR PO SCH (22:57)
[2016-06-28] MEDS: LEVEMIR SUB-Q SCH (22:59)
[2016-06-29] MEDS: NOVOLOG SUB-Q SCH ×4 (08:48→17:30)
[2016-06-29] MEDS: LOVENOX SUB-Q SCH (10:27)
[2016-06-29] MEDS: DITROPAN XL PO SCH (10:28)
[2016-06-29] MEDS: BABY ASPIRIN PO SCH (10:28)
[2016-06-29] MEDS: PROTONIX PO SCH (10:28)
[2016-06-29] MEDS: LOPRESSOR PO SCH ×2 (10:29→22:16)
[2016-06-29] MEDS: ZOCOR PO SCH (22:16)
[2016-06-29] MEDS: LEVEMIR SUB-Q SCH (22:16)
[2016-06-30] MEDS: XANAX PO PRN (01:07)
[2016-06-30] MEDS: NOVOLOG SUB-Q SCH ×2 (09:24→13:01)
--- NOTE | 2016-06-30 09:32 | Progress Note ---
Assessment and Plan - Patient Problems (1) Contusion of right knee Current Visit: Yes Status: Acute Plan to address problem: ortho consulted, (2) Frequent falls Current Visit: Yes Status: Acute Plan to address problem: PT consulted, (3) Debility Current Visit: Yes Status: Acute Plan to address problem: PT consulted, supportive care. (4) Encephalopathy Current Visit: Yes Status: Resolved (5) HTN (hypertension) Current Visit: Yes Status: Acute Plan to address problem: monitor bp q shift (6) Diabetes Current Visit: Yes Status: Acute Plan to address problem: ada diet, insulin, accu check History Interval history: Pt resting comfortably, Pt sitting on side of bed, No reported nursing events overnight. Hospitalist Physical - Constitutional Vitals: Temp Pulse Resp BP Pulse Ox 98 F 62 20 120/66 98 06/30/16 04:57 06/30/16 04:57 06/30/16 04:57 06/30/16 04:57 06/29/16 23:00 General appearance: Present: no acute distress, well-nourished - EENT Eyes: Present: PERRL, EOM intact ENT: hearing intact - Neck Neck: Present: supple - Respiratory Respiratory effort: normal Respiratory: bilateral: CTA - Cardiovascular Rhythm: regular Heart Sounds: Present: S1 & S2 - Extremities Extremities: no ischemia Peripheral Pulses: within normal limits - Abdominal General gastrointestinal: soft, non-tender, non-distended - Integumentary Integumentary: Present: clear, dry - Psychiatric Psychiatric: appropriate mood/affect, cooperative - Neurologic Neurologic: CNII-XII intact Results - Labs CBC & Chem 7: 06/27/16 05:35 06/27/16 05:35 Labs: Laboratory Last Values WBC 6.3 K/mm3 (4.5-11.0) 06/27/16 05:35 RBC 6.06 M/mm3 (3.65-5.03) H 06/27/16 05:35 Hgb 19.6 gm/dl (11.8-15.2) H 06/27/16 05:35 Hct 55.7 % (35.5-45.6) H 06/27/16 05:35 MCV 92 fl (84-94) 06/27/16 05:35 MCH 32 pg (28-32) 06/27/16 05:35 MCHC 35 % (32-34) H 06/27/16 05:35 RDW 13.7 % (13.2-15.2) 06/27/16 05:35 Plt Count 179 K/mm3 (140-440) 06/27/16 05:35 Lymph % (Auto) 15.0 % (13.4-35.0) 06/27/16 05:35 [place] % (Auto) 13.2 % (0.0-7.3) H 06/27/16 05:35 Eos % (Auto) 2.5 % (0.0-4.3) 06/27/16 05:35 Baso % (Auto) 1.2 % (0.0-1.8) 06/27/16 05:35 Lymph # 0.9 K/mm3 (1.2-5.4) L 06/27/16 05:35 [place] # 0.8 K/mm3 (0.0-0.8) 06/27/16 05:35 Eos # 0.2 K/mm3 (0.0-0.4) 06/27/16 05:35 Baso # 0.1 K/mm3 (0.0-0.1) 06/27/16 05:35 Seg Neutrophils % 68.1 % (40.0-70.0) 06/27/16 05:35 Seg Neutrophils # 4.3 K/mm3 (1.8-7.7) 06/27/16 05:35 PT 12.0 Sec. (12.2-14.9) L 06/22/16 14:27 INR 0.90 (0.87-1.13) 06/22/16 14:27 Thrombin Time 13.8 Sec. (15.1-19.6) L 06/22/16 14:27 VBG pH 7.332 (7.320-7.420) 06/22/16 14:27 Sodium 138 mmol/L (137-145) 06/27/16 05:35 Potassium 4.1 mmol/L (3.6-5.0) 06/27/16 05:35 Chloride 97.6 mmol/L (98-107) L 06/27/16 05:35 Carbon Dioxide 25 mmol/L (22-30) 06/27/16 05:35 Anion Gap 20 mmol/L 06/27/16 05:35 BUN 9 mg/dL (9-20) 06/27/16 05:35 Creatinine 1.0 mg/dL (0.8-1.5) 06/27/16 05:35 Estimated GFR > 60 ml/min 06/27/16 05:35 BUN/Creatinine Ratio 9.00 % 06/27/16 05:35 Glucose 178 mg/dL (75-100) H 06/27/16 05:35 POC Glucose 166 (70-105) H 06/30/16 06:24 Calcium 9.4 mg/dL (8.4-10.2) 06/27/16 05:35 Ammonia 42.0 umol/L (25-60) 06/26/16 12:32 Troponin T < 0.010 ng/mL (0.00-0.029) 06/22/16 14:27 TSH 1.360 mlU/mL (0.270-4.200) 06/26/16 12:32 Urine Color Yellow (Yellow) 06/23/16 01:08 Urine Turbidity Clear (Clear) 06/23/16 01:08 Urine pH 5.0 (5.0-7.0) 06/23/16 01:08 Ur Specific [place] 1.024 (1.003-1.030) 06/23/16 01:08 Urine Protein <15 mg/dl mg/dL (Negative) 06/23/16 01:08 Urine Glucose (UA) >=500 mg/dL (Negative) 06/23/16 01:08 Urine Ketones Neg mg/dL (Negative) 06/23/16 01:08 Urine Blood Neg (Negative) 06/23/16 01:08 Urine Nitrite Neg (Negative) 06/23/16 01:08 Urine Bilirubin Neg (Negative) 06/23/16 01:08 Urine Urobilinogen < 2.0 mg/dL (<2.0) 06/23/16 01:08 Ur Leukocyte Esterase Neg (Negative) 06/23/16 01:08 Urine WBC (Auto) 0.0 /HPF (0.0-6.0) 06/23/16 01:08 Urine RBC (Auto) < 1.0 /HPF (0.0-6.0) 06/23/16 01:08 Urine Mucus Few /HPF 06/23/16 01:08 Ketones 1.6 mg/dL (0.2-2.8) 06/22/16 14:27
--- NOTE | 2016-06-30 09:42 | Progress Note ---
Assessment and Plan - Patient Problems (1) Contusion of right knee Current Visit: Yes Status: Acute Plan to address problem: ortho consulted, (2) Frequent falls Current Visit: Yes Status: Acute Plan to address problem: PT consulted, (3) Debility Current Visit: Yes Status: Acute Plan to address problem: PT consulted, supportive care. (4) Encephalopathy Current Visit: Yes Status: Resolved (5) HTN (hypertension) Current Visit: Yes Status: Acute Plan to address problem: monitor bp q shift (6) Diabetes Current Visit: Yes Status: Acute Plan to address problem: ada diet, insulin, accu check History Interval history: Pt resting comfortably, Pt sitting on side of bed, No reported nursing events overnight. case management consulted for D/C planning, D/C to SNF Hospitalist Physical - Constitutional Vitals: Temp Pulse Resp BP Pulse Ox 98 F 62 20 120/66 98 06/30/16 04:57 06/30/16 04:57 06/30/16 04:57 06/30/16 04:57 06/29/16 23:00 General appearance: Present: no acute distress, well-nourished - EENT Eyes: Present: PERRL, EOM intact ENT: hearing intact - Neck Neck: Present: supple - Respiratory Respiratory: bilateral: CTA - Cardiovascular Rhythm: regular Heart Sounds: Present: S1 & S2 - Extremities Extremities: no ischemia Peripheral Pulses: within normal limits - Abdominal General gastrointestinal: soft, non-tender, non-distended - Integumentary Integumentary: Present: clear, dry - Psychiatric Psychiatric: appropriate mood/affect, cooperative - Neurologic Neurologic: CNII-XII intact Results - Labs CBC & Chem 7: 06/27/16 05:35 06/27/16 05:35 Labs: Laboratory Last Values WBC 6.3 K/mm3 (4.5-11.0) 06/27/16 05:35 RBC 6.06 M/mm3 (3.65-5.03) H 06/27/16 05:35 Hgb 19.6 gm/dl (11.8-15.2) H 06/27/16 05:35 Hct 55.7 % (35.5-45.6) H 06/27/16 05:35 MCV 92 fl (84-94) 06/27/16 05:35 MCH 32 pg (28-32) 06/27/16 05:35 MCHC 35 % (32-34) H 06/27/16 05:35 RDW 13.7 % (13.2-15.2) 06/27/16 05:35 Plt Count 179 K/mm3 (140-440) 06/27/16 05:35 Lymph % (Auto) 15.0 % (13.4-35.0) 06/27/16 05:35 [place] % (Auto) 13.2 % (0.0-7.3) H 06/27/16 05:35 Eos % (Auto) 2.5 % (0.0-4.3) 06/27/16 05:35 Baso % (Auto) 1.2 % (0.0-1.8) 06/27/16 05:35 Lymph # 0.9 K/mm3 (1.2-5.4) L 06/27/16 05:35 [place] # 0.8 K/mm3 (0.0-0.8) 06/27/16 05:35 Eos # 0.2 K/mm3 (0.0-0.4) 06/27/16 05:35 Baso # 0.1 K/mm3 (0.0-0.1) 06/27/16 05:35 Seg Neutrophils % 68.1 % (40.0-70.0) 06/27/16 05:35 Seg Neutrophils # 4.3 K/mm3 (1.8-7.7) 06/27/16 05:35 PT 12.0 Sec. (12.2-14.9) L 06/22/16 14:27 INR 0.90 (0.87-1.13) 06/22/16 14:27 Thrombin Time 13.8 Sec. (15.1-19.6) L 06/22/16 14:27 VBG pH 7.332 (7.320-7.420) 06/22/16 14:27 Sodium 138 mmol/L (137-145) 06/27/16 05:35 Potassium 4.1 mmol/L (3.6-5.0) 06/27/16 05:35 Chloride 97.6 mmol/L (98-107) L 06/27/16 05:35 Carbon Dioxide 25 mmol/L (22-30) 06/27/16 05:35 Anion Gap 20 mmol/L 06/27/16 05:35 BUN 9 mg/dL (9-20) 06/27/16 05:35 Creatinine 1.0 mg/dL (0.8-1.5) 06/27/16 05:35 Estimated GFR > 60 ml/min 06/27/16 05:35 BUN/Creatinine Ratio 9.00 % 06/27/16 05:35 Glucose 178 mg/dL (75-100) H 06/27/16 05:35 POC Glucose 166 (70-105) H 06/30/16 06:24 Calcium 9.4 mg/dL (8.4-10.2) 06/27/16 05:35 Ammonia 42.0 umol/L (25-60) 06/26/16 12:32 Troponin T < 0.010 ng/mL (0.00-0.029) 06/22/16 14:27 TSH 1.360 mlU/mL (0.270-4.200) 06/26/16 12:32 Urine Color Yellow (Yellow) 06/23/16 01:08 Urine Turbidity Clear (Clear) 06/23/16 01:08 Urine pH 5.0 (5.0-7.0) 06/23/16 01:08 Ur Specific [place] 1.024 (1.003-1.030) 06/23/16 01:08 Urine Protein <15 mg/dl mg/dL (Negative) 06/23/16 01:08 Urine Glucose (UA) >=500 mg/dL (Negative) 06/23/16 01:08 Urine Ketones Neg mg/dL (Negative) 06/23/16 01:08 Urine Blood Neg (Negative) 06/23/16 01:08 Urine Nitrite Neg (Negative) 06/23/16 01:08 Urine Bilirubin Neg (Negative) 06/23/16 01:08 Urine Urobilinogen < 2.0 mg/dL (<2.0) 06/23/16 01:08 Ur Leukocyte Esterase Neg (Negative) 06/23/16 01:08 Urine WBC (Auto) 0.0 /HPF (0.0-6.0) 06/23/16 01:08 Urine RBC (Auto) < 1.0 /HPF (0.0-6.0) 06/23/16 01:08 Urine Mucus Few /HPF 06/23/16 01:08 Ketones 1.6 mg/dL (0.2-2.8) 06/22/16 14:27
[2016-06-30] MEDS: LOPRESSOR PO SCH (10:55)
[2016-06-30] MEDS: PROTONIX PO SCH (11:03)
[2016-06-30] MEDS: DITROPAN XL PO SCH (11:03)
[2016-06-30] MEDS: BABY ASPIRIN PO SCH (11:04)
[2016-06-30] MEDS: LOVENOX SUB-Q SCH (11:04)
--- NOTE | 2016-06-30 13:07 | Discharge Summary ---
Providers - Providers Date of Admission: 06/23/16 02:21 Attending physician: AUDELIA TERESA 06/23/16 04:40 Consult to Physician [CONS] Routine Consulting Provider: CIRO MAYERS V Reason For Exam: knee pain, h/o knee surgery Place consult to:: DR. MAYERS Notified:: OFFICE Phone number called:: [phone] Was contact made?: Yes If yes, spoke with:: SYDNEE Time called:: 09:39 Comment:: HERNESTO NOTIFIED 06/24/16 08:20 Physical Therapy Evaluation and Treat [CONS] Routine Comment: Reason For Exam: frequent falls 06/25/16 15:36 Physical Therapy Evaluation and Treat [CONS] Routine Comment: Reason For Exam: falls. Unsteady gait Primary care physician: RADHA ASKEW Hospitalization Condition: Fair Hospital course: 76 YO Male admitted for Right knee contusion, and debility. Pt treated with supportive care. Ortho team consulted, but no significant findings and no surgical intervention needed. Pt convalesced well during hospital course. Case management consulted for placement as per family request. PT consulted for deconditioning. PT symptoms improved with therapy. Pt convalesced fair during hospital course. Pt medically optimized. Pt seen and evaluated prior to discharge but no significant new physical exam findings. Pt discharged to SNF under care of the care of the district medical examiner. Pt instructed to f/u pcp 1wk, 35 minutes dedicated to patient discharge. Disposition: DC/TX SNF W [facility] CERT - Discharge Diagnoses (1) Contusion of right knee Status: Acute (2) Frequent falls Status: Acute (3) Debility Status: Acute (4) Encephalopathy Status: Resolved (5) HTN (hypertension) Status: Acute (6) Diabetes Status: Acute Core Measure Documentation - Palliative Care Palliative Care/ Comfort Measures: Not Applicable - Core Measures Any of the following diagnoses?: none Exam - Constitutional Vitals: Temp Pulse Resp BP Pulse Ox 98 F 70 20 143/88 98 06/30/16 04:57 06/30/16 10:55 06/30/16 04:57 06/30/16 10:55 06/29/16 23:00 General appearance: Present: no acute distress, well-nourished - EENT Eyes: Present: PERRL ENT: hearing intact, clear oral mucosa - Neck Neck: Present: supple, normal ROM - Respiratory Respiratory effort: normal Respiratory: bilateral: CTA - Cardiovascular Heart Sounds: Present: S1 & S2. Absent: rub, click - Extremities Extremities: pulses symmetrical, No edema Peripheral Pulses: within normal limits - Abdominal General gastrointestinal: Present: soft, non-tender, non-distended, normal bowel sounds Male genitourinary: Present: normal - Integumentary Integumentary: Present: clear, warm, dry - Musculoskeletal Musculoskeletal: generalized weakness - Psychiatric Psychiatric: appropriate mood/affect, intact judgment & insight - Neurologic Neurologic: CNII-XII intact, moves all extremities Plan Activity: advance as tolerated Follow up with: RADHA ASKEW MD [Primary Care Provider] - 3-5 Days
[2016-06-30 15:35] VITALS: BP 143/85
== END 2016-06-30 15:15 | DRG 559 ==
LOC: ED 12:41 → 3A 06-23 02:21
PROVIDERS: ADMIT Internal Medicine; ATTEND Internal Medicine
DX: T84.092A Other mechanical complication of internal right knee prosthesis, initial encounter (principal); G93.40 Encephalopathy, unspecified; S80.01XA Contusion of right knee, initial encounter; R29.6 Repeated falls; I10 Essential (primary) hypertension; E11.9 Type 2 diabetes mellitus without complications; E86.0 Dehydration; W18.30XA Fall on same level, unspecified, initial encounter; Y93.89 Activity, other specified; Z86.73 Personal history of transient ischemic attack (TIA), and cerebral infarction without residual deficits; Z79.82 Long term (current) use of aspirin; Y92.89 Other specified places as the place of occurrence of the external cause; Y99.8 Other external cause status
CPT/HCPCS: 36415; 70450; 72170; 80048; 81001; 82010; 82140; 82805; 82962; 84443; 84484; 85025; 85610; 85670; 90686; 90732; G8978-GP; G8979-GP; J1630; J1650; J1815; J1818; J2060; J7030